=== PATIENT | male | born 1950 | race Two or more races ===

== ENCOUNTER 2018-03-09 13:33 | Emergency (ER) | payer BC ==
[~2018-03-09] VITALS: Ht 175.3 cm; Wt 74.8 kg
[2018-03-09] MEDS ORDERED: CARBIDOPA/LEVODOPA (13:46)
--- NOTE | 2018-03-09 13:56 | NUR ---
PT IS IN ROOM #2A. DR GARCIAALUATED THE PT.
[2018-03-09] MEDS ORDERED: IV NORMAL SALINE 1000 ML BAG IV ONE (14:00)
[2018-03-09 14:05] LABS: EOSINOPHILS # (AUTO) 0.2 K/uL (0.0-0.7); EOSINOPHILS % (AUTO) 3.1 % (0.0-7.0); HEMOGLOBIN 11.5 g/dL (12.5-16.3); LYMPHOCYTES # (AUTO) 1.3 K/uL (20.0-40.0); LYMPHOCYTES % (AUTO) 26.7 % (20.5-51.5); MEAN CORPUSCULAR HEMOGLOBIN 30.7 uug (23.8-33.4); MEAN CORPUSCULAR HGB CONC 35 g/dL (32.5-36.3); MEAN CORPUSCULAR VOLUME 88.2 fL (73.0-96.2); MONOCYTES # (AUTO) 0.2 K/uL (2.0-10.0); MONOCYTES % (AUTO) 4.1 % (0.0-11.0); NEUTROPHILS # (AUTO) 3.2 K/uL (1.8-8.9); NEUTROPHILS % (AUTO) 65.1 % (38.5-71.5); PLATELET COUNT (AUTO) 131 K/uL (152-348); RED BLOOD CELL COUNT(AUTO) 3.74 MIL/uL (4.06-5.63); WHITE BLOOD COUNT (AUTO) 4.9 K/uL (3.6-10.2)
[2018-03-09 14:15] LABS: CREATININE 1.3 mg/dL (0.6-1.3); POTASSIUM 3.8 mmol/L (3.5-5.1)
[2018-03-09 14:29] LABS: BILIRUBIN,DIRECT 0.2 mg/dL (0.0-0.2); BILIRUBIN,TOTAL 0.6 mg/dL (0.2-1.0)
[2018-03-09 15:36] VITALS: BP 128/72
--- NOTE | 2018-03-09 15:36 | NUR ---
PT WAS D/C TO HOME. D/C INSTRUCTIONS GIVEN TO THE PT.
== END 2018-03-09 15:37 | disposition home or self-care (01) ==
LOC: ER 13:33
DX: I95.9 Hypotension, unspecified (principal); E86.0 Dehydration
CPT/HCPCS: 36415; 80048; 80076; 83605; 84484; 85025; 85730; 87040 ×2; 93005; 96360; 99285; A4663; J7030; 70030-TC